=== PATIENT | female | born 1935 | race Caucasian/White ===

== ENCOUNTER 2019-07-17 03:58 | Emergency (ER) | payer MEDICARE, OTHER ==
[~2019-07-17] VITALS: Ht 170.2 cm; Wt 69.1 kg
[2019-07-17] MEDS ORDERED: MAXZIDE-25 MG1 EACH PO (04:08)
[2019-07-17] MEDS ORDERED: FOSAMAX 70 MG T70 MG PO (04:08)
[2019-07-17] MEDS ORDERED: PAXIL10 MG PO (04:09)
[2019-07-17] MEDS ORDERED: LISINOPRIL2.5 MG PO (04:09)
[2019-07-17] MEDS ORDERED: CARVEDILOL3.125 MG PO (04:10)
[2019-07-17] MEDS ORDERED: TRAMADOL 50 MG50 MG PO (04:11)
[2019-07-17] MEDS ORDERED: BENTYL 10 MG CA10 M1 PO (04:11)
[2019-07-17] MEDS ORDERED: ASPIR 8181 MG PO (04:11)
[2019-07-17 04:21] LABS: ABSOLUTE BASOPHILS 0.1 thou/uL (0.0-0.2); ABSOLUTE EOSINOPHILS 0.1 thou/uL (0.0-0.7); ABSOLUTE LYMPHOCYTES 1.5 thou/uL (0.8-5.3); ABSOLUTE MONOCYTES 0.8 thou/uL (0.0-1.2); ABSOLUTE NEUTROPHILS 4.5 thou/uL (1.6-8.1); BASOPHILS 0.8 %; EOSINOPHILS 0.9 %; HEMATOCRIT 39.3 % (37.0-47.0); HEMOGLOBIN 12.9 gm/dL (12.0-15.0); LYMPHOCYTES 21.7 %; MCH 31.6 pg (26.0-34.0); MCHC 32.8 g/dL (28.0-37.0); MCV 96.1 fL (80.0-100.0); MONOCYTES 11.1 %; MPV 7.8 fl. (7.2-11.1); NUCLEATED RBCS 0 /100WBC; PLATELET COUNT* 202 thou/uL (150-400); POLYS 65.5 %; RBC 4.09 mil/uL (4.20-5.00); RDW-CV 20.2 % (10.5-14.5); WBC 6.9 thou/uL (4.0-11.0)
[2019-07-17 04:28] LABS: ANION GAP 11 mmol/L (7-16); BUN 23 mg/dL (7-18); CALCIUM 8.4 mg/dL (8.5-10.1); CHLORIDE 100 mmol/L (98-107); CO2 24 mmol/L (21-32); CREATININE 1.2 mg/dL (0.6-1.3); GLUCOSE 143 mg/dL (70-99); POTASSIUM 3.5 mmol/L (3.5-5.1); SODIUM 135 mmol/L (136-145)
[2019-07-17 04:35] LABS: APTT 25.9 Seconds (25.0-31.3); PROTIME 10.1 Seconds (9.20-11.50)
[2019-07-17 04:38] LABS: ALBUMIN 3.1 g/dL (3.4-5.0); ALKALINE PHOSPHATASE 89 U/L (46-116); SGOT 21 U/L (15-37); SGPT 19 U/L (30-65); TOTAL BILIRUBIN 0.5 mg/dL (<0.1-1.0); TOTAL PROTEIN 7.5 g/dL (6.4-8.2); TROPONIN-I LEVEL <0.06 ng/mL (<0.06)
[2019-07-17] MEDS ORDERED: FLEXERIL PO (05:16)
[2019-07-17] MEDS ORDERED: NORCO 5-325 TA1 EAC1 PO (05:16)
[2019-07-17 05:41] VITALS: BP 112/45
--- NOTE | 2019-07-17 16:16 | EKG ---
[place] [address] ELECTROCARDIOGRAM REPORT Name: DAIJA LOPEZ Room: [facility]#: [id number] Admission: 07/17/19 Attend Phys: Discharge: 07/17/19 Date of : 31 Report #: [id number] THIS REPORT FOR: //name// [facility] ED Test Date: 2019-07-17 Test Time: 04:17:28 Pat Name: DAIJA LOPEZ Department: Room: Gender: F [employer]: ELPIDIO : 1935 Requested By: Rogerio Traylor Order Number: [id number] MD: Sea Lind Measurements Intervals [place] Rate: 73 P: 69 TN: 224 QRS: -52 QRSD: 147 T: 118 QT: 387 QTc: 427 Interpretive Statements Sinus rhythm Unifocal premature ventricular contractions Prolonged TN interval Left bundle branch block No previous ECG available for comparison Electronically Signed On 07-17-2019 16:15:57 CDT by Sea Lind [email or web address] <ELECTRONICALLY SIGNED> By: Sea Lind MD, [facility] 07/17/19 1615 0417 0417 Sea Lind MD, FAC /EPI
== END 2019-07-17 05:43 | disposition home or self-care (01) ==
LOC: M.ERS 03:58
PROVIDERS: Family Medicine
DX: S10.93XA Contusion of unspecified part of neck, initial encounter (principal); M43.6 Torticollis; Z90.710 Acquired absence of both cervix and uterus; W01.0XXA Fall on same level from slipping, tripping and stumbling without subsequent striking against object, initial encounter; Y92.89 Other specified places as the place of occurrence of the external cause; Y93.89 Activity, other specified; Y99.8 Other external cause status